=== PATIENT | male | born 1950 | race Caucasian/White ===

== ENCOUNTER 2018-02-25 14:46 | Inpatient (IN) | payer MEDICARE ==
[~2018-02-25] VITALS: Ht 182.9 cm
--- NOTE | ~2018-02-25 | HEMODYNAMI ---
PATIENT:KATELYN NUGENT MEDICAL RECORD: [id number] : 50 [facility]# [id number] ADMISSION DATE: 02/25/18 Generatedon:02/26/201816:49 Patient name: KATELYN NUGENT Patient #: [id number] SSN: DO B: 1950 Date of study: 02/26/2018 Page: Of Hemodynamic Procedure Report Patient Data Patient Demographics Procedure consent was obtained First Name: KATELYN Gender: Male Last Name: RAFFI : 1950 Middle Initial: D Age: 68 year(s) Patient #: [id number] Race: Unknown Additional ID: [id number] Contact details [address]: [address] [place] [address] State: [place] City: [place] Zip code: [address] Past Medical History Allergies Allergen Reaction Date Comments Reported Other allergy 02/26/2018 PCN, SULFA, TETANUS, EQUINE Admission Admission Data Admission Date: 02/25/2018 Admission Time: 14:46 Room #: D.2115 Lab Results Lab Result Date: 02/26/2018 Lab Result Time: 0:00 Biochemistry Name Units Result Min Max BUN mg/dl 17 --(---*)-- 7 18 Creatinine mg/dl 1.2 --(---*)-- 0.6 1.3 CBC Name Units Result Min Max Hemoglobin g/dl 14.5 --(*---)-- 13.5 17.5 Procedure Procedure Types Cath Procedure Diagnostic Procedure C [facility] w/Coronaries Sedation Charges Moderate Sedation up to 15 minutes PCI Procedure Coronary Stent Coronary Stent Initial Peripheral Cath Diagnostic Procedure Cath Peripheral Four Vessel Arteriogram Procedure Description Procedure Date Procedure Date: 02/26/2018 Procedure Start Time: 16:28 Procedure End Time: 16:49 Procedure Staff Name Function Robert Mix MD Performing Physician Fanny Melgoza RT Monitor Pilo Mercedes RT Scrub Aníbal Chapin RN Nurse Dominik Handley RT Assembler Final Procedure Data Cath Procedure Fluoroscopy Diagnostic fluoroscopy Total fluoroscopy Time: 4.6 time: 4.6 min min Diagnostic fluoroscopy Total fluoroscopy dose: 782 dose: 782 mGy mGy Contrast Material Contrast Material Type Amount (ml) Isovue 370 137 Entry Location Entry Primary Successful Side Size Upsize Upsize Entry Closure Succes sful Closure Location (Fr) 1 (Fr) 2 (Fr) Remarks Device Remarks Femoral Right 5 Fr 6 Fr Exoseal artery Short Estimated blood loss: 10 ml Diagnostic catheters Device Type Used For End Catheter Placement MULTIPACK Pigtail 5 Fr Procedure catheter MULTIPACK JL 4.0 5Fr Procedure catheter MULTIPACK 3DRC 5Fr Procedure catheter Procedure Complications No complications Procedure Medications Medication Administration Route Dosage Oxygen NC 2 l/min Lidocaine 2% added to field 20 Heparin Flush Bag added to field 2 bags (1000units/500ml NS) 0.9% NaCl I.V. ml/hr Versed I.V. 1 mg Fentanyl I.V. 50 mcg Heparin Bolus I.V. 4000 units Integrilin (Bolus I.V. 8.5 ml 2mg/ml) Versed I.V. 1 mg Fentanyl I.V. 50 mcg Plavix P.O. 600 mg Hemodynamics Rest HGB: 14.5 (g/dl) Heart Rate: 65 (bpm) Snapshots Pre Cath Intra NCS Post Cath Vital Signs Time Heart Resp SPO2 etCO2 NIBP (mmHg) Rhythm Pain Sedation Rate (ipm) (%) (mmHg) Status Level (bpm) 16:23:40 64 15 96 46.6 135/83(120) NSR 0 (11) 10(A) , No pain 16:28:19 72 16 94 40.6 103/69(89) NSR 0 (11) 10(A) , No pain 16:32:53 71 15 93 42.1 105/71(91) NSR 0 (11) 9(A) , No pain 16:37:30 71 21 95 20 119/74(88) NSR 0 (11) 9(A) , No pain 16:42:06 72 16 96 14.2 112/70(90) NSR 0 (11) 9(A) , No pain 16:46:45 72 15 94 40.6 111/69(97) NSR 0 (11) 10(A) , No pain Medications Time Medication Route Dose Verified Delivered Reason Notes Effectiveness by by 16:23:45 Oxygen NC 2 Robert Spangler used for l/min Dominguez Chapin RN procedure 16:23:52 Lidocaine 2% added 20ml Robertdarrell Jones for local to vial Dominguez Mix MD anesthetic field 16:24:03 Heparin Flush added 2 Robert Robert used for Bag to bags Dominguez Mix MD procedure (1000units/500ml field NS) 16:24:09 0.9% NaCl I.V. ml/hr Robertdarrell Spangler Per physician Dominguez Chapin RN 16:25:06 Versed I.V. 1 mg Robert Hopperie for sedation Dominguez Chapin RN 16:25:12 Fentanyl I.V. 50 Robert Buffie for sedation mcg Dominguez Chapin RN 16:36:23 Heparin Bolus I.V. 4000 Robert Buffie for verifi ed units Dominguez Chapin RN anticoagulation with dr mix 16:39:06 Integrilin I.V. 8.5 Robert Hopperie for Wasted (Bolus 2mg/ml) ml Dominguez Chapin RN antiplatelet 1.5 ml therapy of vial 16:42:17 Versed I.V. 1 mg Robert Hopperie for sedation Dominguez Chapin RN 16:42:21 Fentanyl I.V. 50 Robert Buffie for sedation mcg Dominguez Chapin RN 16:48:56 Plavix P.O. 600 Robert Hopperie for mg Dominguez Chapin RN antiplatelet therapy Procedure Log Time Note 15:52:42 Informed consent obtained and on chart 15:53:04 Diagnostic Cath status Elective 15:53:06 Dominik Handley RT(R) sent for patient. Start room use. 15:53:07 Time tracking: Regular hours (M-F 7:00 - 5:00) 15:53:11 Plan of Care:Hemodynamics will remain stable., Cardiac rhythm will remain stable., Comfort level will be maintained., Respiratory function will remain adequate., Patient/ family verbilizes understanding of procedure., Procedure tolerated without complication., Recovers from procedure without complications.. 15:53:20 H&P Date Dictated: 02/25/2018 Within 30 days and on chart.. 16:11:54 Patient received from Med/Surg to CCL 1 Alert and oriented. Tansferred to table in Supine position. 16:11:55 Warm blankets applied, and chaparro hugger turned on for patient comfort. 16:11:56 Correct patient and procedure confirmed by team. 16:11:57 ECG and BP/O2 sat monitors applied to patient. 16::58 Pre-procedure instructions explained to patient. 16::58 Pre-op teaching completed and patient verbalized understanding. 16:12:12 Family in patients room. 16:12:14 Patient NPO since Midnight. 16:22:47 Vital chart was started 16:22:49 Baseline sample Acquired. 16:22:54 Rhythm: sinus rhythm 16::58 Full Disclosure recording started 16:23:17 Patient allergic to Other allergyPCN, SULFA, TETANUS, EQUINE 16:23:23 Is the patient allergic to Iodine/contrast media? No. 16:23:24 Is patient on blood thinner?No 16:23:27 Patient diabetic? No. 16:23:31 Previous problem with sedation/anesthesia? No ? 16:23:32 Snore? Yes 16:23:33 Sleep apnea? No 16:23:34 Deviated septum? No 16:23:34 Opens mouth fully? Yes 16:23:35 Sticks out tongue? Yes 16:23:37 Airway obstruction? No ? 16:23:42 Dentures? Yes IN TIGHT 16:23:45 Oxygen 2 l/min NC was administered by Aníbal Chapin RN; used for procedure; 16:23:46 Pre procedure: right dorsailis pedis pulse 2+ Normal; easily identifiable; not easily obliterated 16:23:52 Lidocaine 2% 20ml vial added to field was administered by Robert Mix MD; for local anesthetic; 16:24:02 Patient pain scale 0/10 ?. 16:24:03 Heparin Flush Bag (1000units/500ml NS) 2 bags added to field was administered by Robert Mix MD; used for procedure; 16:24:06 IV patent on arrival in left hand with 0.9% NaCl at [facility]. 16:24:09 0.9% NaCl ml/hr I.V. was administered by Aníbal Chapin RN; Per physician; 16:24:29 Lab Result : BUN 17 mg/dl 16:24:29 Lab Result : Hemoglobin 14.5 g/dl 16:24:29 Lab Result : Creatinine 1.2 mg/dl 16:24:37 Right groin area was prepped with chlora-prep and draped in sterile fashion 16:24:38 Alarms reviewed by R. N. 16:24:39 Sharps counted by scrub and verified by R.N. 16::40 --------ALL STOP TIME OUT------ 16::40 Final Timeout: patient, procedure, and site verified with staff and physician. All members of the team are in agreement. 16:24:42 Right groin site verified by team. 16:24:45 Physical assessment completed. ASA score P 2 - A patient with mild systemic disease as per Robert Mix MD. 16:24:48 Sedation plan: IV Moderate Sedation Medication:Versed, Fentanyl 16:24:57 Pt has noted facial draw to rt side of face. speech is clear. pt states has had this and takes medication for this for many years, 16:25:06 Versed 1 mg I.V. was administered by Aníbal Chapin RN; for sedation; 16:25:12 Fentanyl 50 mcg I.V. was administered by Aníbal Chapin RN; for sedation; 16:25:17 Use device set Femoral Dx 16:25:18 ACIST Syringe (43130) opened to sterile field. 16:25:20 Bag Decanter (2002S) opened to sterile field. 16:25:22 ACIST Hand Control (27634) opened to sterile field. 16:25:22 ACIST Manifold (12949) opened to sterile field. 16:25:23 Tegaderm 4 x 4 (1626W) opened to sterile field. 16:25:24 Medline Cath Pack ([id number]) opened to sterile field. 16:25:25 DIAGNOSTIC WIRE .035 260cm J wire (022109) opened to sterile field. 16:25:26 DIAGNOSTIC Multipack 5Fr catheter set (GI9005) opened to sterile field. 16:25:28 SHEATH Prelude 5Fr 0.035 (OQL-0Y-62-035) opened to sterile field. 16:27:09 Zero performed for pressure channel P1 16:28:17 Procedure started. 16:28:26 Local anesthetic to right femoral artery with Lidocaine 2% by Robert Mix MD.INITIAL ACCESS ONLY 16:29:14 A 5 Fr sheath was inserted into the Right Femoral artery 16:29:33 A MULTIPACK Pigtail 5 Fr catheter was advanced over the wire and used for Procedure. 16:29:46 LV gram done using SAAVEDRA 16:29:48 Injector settings: Ml/sec: 10, Volume: 20, 16:30:00 EF : 55 % 16:30:01 Catheter removed. 16:30:06 A MULTIPACK JL 4.0 5Fr catheter was advanced over the wire and used for Procedure. 16:31:21 LCA angiography performed. 16:31:37 Catheter removed. 16:31:59 SHEATH 6FR Marks (SUK486) opened to sterile field. 16:32:04 INFLATOR Merit BasixCompak (JV4450) opened to sterile field. 16:32:10 CHOICE PT Extra Support 182cm wire ([id number]) opened to sterile field. 16:32:20 A MULTIPACK 3DRC 5Fr catheter was advanced over the wire and used for Procedure. 16:32:31 RCA angiography performed. 16:33:45 Right carotid angiography performed. 16:34:39 Left carotid angiography performed. 16:34:59 Catheter removed. 16:35:11 Sheath upsized to a 6 Fr Short. 16:35:19 GUIDE 6FR XB 3.5 catheter ([id number]) opened to sterile field. 16:36:12 6 Fr XB 3.5 guide catheter was inserted over the wire 16:36:23 Heparin Bolus 4000 units I.V. was administered by Aníbal Chapin RN; for anticoagulation; verified with dr mix 16:36:53 CHOICE ES 182 wire advanced. 16:39:01 Inflate balloon Inflation number: 1 A EUPHORA 2.0 x 30 Balloon ([id number]) was prepped and advanced across the Mid CX, then inflated to 17 MONET for 0:10 (min:sec). 16:39:06 Integrilin (Bolus 2mg/ml) 8.5 ml I.V. was administered by Aníbal Chapin RN; for antiplatelet therapy; Wasted 1.5 ml of vial 16:39:21 Balloon removed over the wire. 16:41:34 Place stent Inflation Number: 2 A WILLIAM RX 2.25 x 34 stent ([id number]) was prepped and advanced across the Mid CX. The stent was deployed at 15 MONET for 0:10 (min:sec). 16:42:03 Inflation number: 3 The stent balloon was then re-inflated across the Mid CX to 7 MONET for 0:10 (min:sec). 16:42:17 Versed 1 mg I.V. was administered by Aníbal Chapin RN; for sedation; 16:42:21 Fentanyl 50 mcg I.V. was administered by Aníbal Chapin RN; for sedation; 16:42:37 Stent catheter was removed intact over wire. 16:42:39 Wire removed. 16:42:39 Guide catheter removed. 16:42:45 EXOSEAL 6Fr (EX600) opened to sterile field. 16:43:27 Sheath removed intact; hemostasis achieved with Exoseal to the Right Femoral artery. 16:44:02 Procedure ended.(Physican Out) 16:45:46 Fluoroscopy time 04.60 minutes. 16:45:56 Flurop Dose total: 782 16:45:56 Fluoroscopy dose: 782 mGy 16:46:00 Contrast amount:Isovue 370 137ml. 16:46:05 Post-op/insertion site Right Femoral artery dressed using a 4 x 4 and Tegaderm. 16:46:17 Post right femoral artery:stable, soft, clean and dry 16:46:27 Post procedure: right dorsailis pedis pulse 2+ Normal; easily identifiable; not easily obliterated. 16:46:30 Post-procedure physical assessment completed. ASA score P 2 - A patient with mild systemic disease as per Robert Mix MD. 16:46:35 Post procedure rhythm: unchanged. 16:46:38 Estimated blood loss: 10 ml 16:46:39 Post procedure instruction explained to patient.Patient verbalizes understanding. 16:46:39 Patient needs reinforcement of post procedure teaching. 16:47:15 Procedure type changed to Cath procedure, Diagnostic procedure, LHC, LHC w/Coronaries, Sedation Charges, Moderate Sedation up to 15 minutes, PCI procedure, Coronary Stent, Coronary Stent Initial, Peripheral Cath Diagnostic Procedure, Cath Peripheral, Four Vessel Arteriogram 16:48:56 Plavix 600 mg P.O. was administered by Aníbal Chapin RN; for antiplatelet therapy; 16:49:12 Procedure and supply charges have been captured, reviewed, submitted and are correct. 16:49:14 Procedure Complication : No complications 16:49:16 Vital chart was stopped 16:49:16 See physician's report for complete and final results. 16:49:22 Report given to PCU. 16:49:25 Patient transfered to PCU with Bed. 16:49:26 Procedure ended. 16:49:26 Full Disclosure recording stopped 16:49:29 End room use (Document Last) Intervention Summary Intervention Notes Time ActionType Lesion and Equipment Used Action# Pressure Duration Attributes 16:39:01 Inflate Mid CX EUPHORA 2.0 x 1 17 00:10 balloon 30 Balloon ([id number]) 16:41:34 Place stent Mid CX WILLIAM RX 2.25 x 2 15 00:10 34 stent ([id number]) 16:42:03 Reinflate Mid CX WILLIAM RX 2.25 x 3 7 00:10 stent 34 stent balloon ([id number]) Device Usage Item Name Manufacture Quantity Catalog Number Hospital Part Current Minimal Lot# / Charge Number Stock Stock Serial# Code ACIST Syringe Acist 1 30068 361774 020052 958563 20 (57604) Medical Systems Beauty Noted Bag Decanter Microtek 1 2001S 797362 08688 796088 5 (2001S) Medical Inc. ACIST Hand Acist 1 17749 975403 614843 224947 5 Control (93454) Medical Systems Inc ACIST Manifold Acist 1 92203 038130 759771 553887 5 (15766) Medical Systems Inc Tegaderm 4 x 4 3M 1 1626W 480527 464022 887202 5 (1626W) Medline Cath Cardinal 1 [id number] 618148 64301 947898 5 Pack Health ([id number]) DIAGNOSTIC WIRE St Eduardo 1 246618 793881 879638 647706 30 .035 260cm J wire (115982) DIAGNOSTIC Cardinal 1 ZZ3111 510787 59463 157995 30 Multipack 5Fr Health catheter set (NL4451) SHEATH Prelude Merit 1 NIT-9G-02-035 226508 909139 277713 5 5Fr 0.035 Medical (PDJ-0K-51-035) MULTIPACK Cardinal 1 961933 5 Pigtail 5 Fr Health catheter MULTIPACK JL Cardinal 1 087876 5 4.0 5Fr Health catheter MULTIPACK 3DRC Cardinal 1 846281 5 5Fr catheter Health SHEATH 6FR Terumo 1 HGX070 644742 403396 479581 40 Marks (RYU606) INFLATOR Merit Merit 1 DC9594 041408 877141 155973 15 [employer] (UG4795) CHOICE PT Extra [place] 1 [id number] 570166 904653 991728 5 Support 182cm Scientific wire (2055659H7) GUIDE 6FR XB Cardinal 1 85915615 612111 221915 864890 2 3.5 catheter Health (56353121) EUPHORA 2.0 x Medtronic 1 [id number] 374852 027337 843923 5 [id number] 30 Balloon ([id number]) WILLIAM RX 2.25 x Medtronic 1 [id number] 262562 9992352 545573 5 [id number] 34 stent ([id number]) EXOSEAL 6Fr Cardinal 1 EX600 579541 895364 802364 10 (EX600) Health Signature Audit [place] Stage Time Signature Unsigned Intra-Procedure 02/26/2018 Fanny Melgoza 4:49:52 PM RT(R) Signatures Monitor : Fanny Melgoza Signature : RT Date : Time : [address] [place] [address]
--- NOTE | ~2018-02-25 | CN ---
PATIENT NAME:KATELYN NUGENT MEDICAL RECORD: [id number] : 50 LOCATION:D.Judy D.2115 ADMIT DATE: 02/25/18 ACCOUNT: [id number] CONSULTING PHYSICIAN: DOMINGO BARRETO MD REFERRING PHYSICIAN: DAISY REYES MD DATE OF CONSULTATION: 02/26/2018 ADMITTING DIAGNOSES: 1. Chest pain. 2. Syncope. 3. Hyperlipidemia. 4. Hypertension. 5. History of irregular heartbeat and palpitations. 6. Possible seizure. HISTORY OF PRESENT ILLNESS: This is a gentleman who began having syncopal episodes on Thursday, he has had multiple episodes. He was in Dr. Reyes's office today. He had an episode that was associated with some chest discomfort. There is a question of seizure activity, not known if this was before or after the syncopal episode. His was close to him, did not convey any seizure-like episode; however, the staff seems to have felt that there was a seizure-like activity. His troponin is normal. His EKG is with nonspecific ST-T abnormalities. OVERALL IMPRESSION: Syncope, possible seizure, but associated with chest pain in a patient with hypertension, hyperlipidemia. We will proceed with coronary angiography, four-vessel carotid and vertebral angiography. Further care depends upon the findings of these studies. TRANSINT:[id number] Voice Confirmation ID: [id number] DOCUMENT ID: [id number] DOMINGO BARRETO MD at 1730 CC: [id number] DICTATION DATE: 02/26/18 1246 COLLAR BASTER: 02/26/18 1334 ADM [address] [address] [place] [address]
--- NOTE | ~2018-02-25 | OP ---
PATIENT NAME: KATELYN NUGENT MEDICAL RECORD: [id number] :50 LOCATION:D.M2 D.2115 ADMISSION DATE:02/25/18 SURGEON: DOMINGO BARRETO MD DATE OF OPERATION: 02/26/2018 PROCEDURES: 1. PTCA stent left circumflex. 2. Left heart catheterization. 3. Selective coronary angiography. 4. Left ventriculogram. 5. Four-vessel carotid and vertebral angiography. INDICATION: Angina, coronary artery disease, and syncope. PROCEDURE IN DETAIL: After informed consent was obtained and after a detailed description of the risks, benefits as well as alternative therapies, the patient elected to proceed angiogram and angioplasty. The right femoral area is prepped and draped in normal sterile fashion. Right femoral artery was cannulated via modified Seldinger technique with placement of 6-[place] Islander sheath. All catheter exchanges through this sheath. FINDINGS: There was subselection of each subclavian as well as the left carotid. Right side common internal and external carotids have mild plaquing, none greater than 10%, with no flow-limiting stenosis. Vertebral artery has no significant disease of the left system. Common internal and external carotids have mild plaquing, none greater than 10%. Vertebral artery has no significant disease throughout. LEFT HEART CATHETERIZATION: Left ventriculogram was performed in standard 30-degree SAAVEDRA view, reveals good cardiac wall motion throughout all segments. Overall ejection fraction estimated at 60%. SELECTIVE CORONARY ANGIOGRAPHY: 1. Left main is with no significant angiographic disease. 2. Left anterior descending has a 70+ percent stenosis proximally. 3. The left circumflex has 90% stenosis throughout the mid vessel. 4. Right coronary has moderate irregularities, but no flow-limiting stenosis throughout. PTCA STENT OF THE LEFT CIRCUMFLEX: The stent used was a 2.25 x 34 mm Merrill. Result was 0% residual stenosis. OVERALL IMPRESSION: Successful percutaneous transluminal angioplasty stent of the left circumflex going from 95% initial stenosis to 0% residual. PLAN: PTCA stent of the LAD in the near future. TRANSINT:[id number] Voice Confirmation ID: [id number] DOCUMENT ID: [id number] OPERATIVE REPORT [id number] KATELYN NUGENT DOMINGO BARRETO MD at 0820 CC: [id number] DICTATION DATE: 02/26/181649 SHEEP BONER: 02/27/18 0009 DIS IN 02/27/18 [facility] [address] [place], [facility]
--- NOTE | ~2018-02-25 | EC ---
PATIENT:KATELYN NUGENT DATE OF SERVICE: 02/25/18 SEX: M MEDICAL RECORD: [id number] DATE OF : 50 LOCATION:D.M2 D.211 AGE OF PATIENT: 68 ADMISSION DATE: 02/25/18 REFERRING PHYSICIAN: INTERPRETING PHYSICIAN: DOMINGO MIX MD ECHOCARDIOGRAM REPORT ECHO CHARGES 4 ECHO COMPLETE Date: 02/26 CLINICAL DIAGNOSIS: SYNCOPE ECHOCARDIOGRAPHIC MEASUREMENTS (adult normal given) AC root (d.<3.7cm) 3.9 cm LV Septum d (<1.2 cm> 1.4 cm Valve Excursion 2.0 cm LV Septum (systole) 2.1 cm Left Atria (s.<4.0cm> 3.6 cm LVPW d(<1.2cm) 1.1 cm RV (d.<2.3cm) 2.5 cm LVPW (sytole) 1.8 cm LV diastole(<5.6CM) 4.8 cm MV E-F(>70mm/sec) cm LV systole 2.8 cm LVOT Diameter 1.9 cm MV exc.(>10mm) cm Est.ejection fraction (50-75%) % DOPPLER: LVIT cm/sec A 58.0 cm/sec E 76.0 cm/sec LA cm/sec RVSP 28.0 mmHg LVOT 92.0 cm/sec AOP1/2T m/s Asc. Ao 110 cm/sec RVOT 52.0 cm/sec RA cm/sec PA 66.0 cm/sec AV Gradient Peak 4.9 mmHg AV Mean 2.3 mmHg AV Area 2.3 cm MV Gradient Peak 3.9 mmHg MV Mean 1.2 mmHg MV Area cm COMMENTS: Inspector Finishing: Ricardo WALLOE Senior Web Developer: 1 Dr. Mix TAPE# PACS Pericardial Effusion N DATE OF SERVICE: 02/26/2018 PROCEDURE: Echocardiogram. FINDINGS: 1. Left ventricle chamber size is within normal limits. Left ventricular systolic function is normal. Overall ejection fraction estimated at 60%. 2. Left atrium, right atrium, and right ventricle chamber sizes are within normal limits. 3. Valvular structures have normal structure and motion. ECHOCARDIOGRAM REPORT [id number] KATELYN NUGENT 4. Doppler interrogation only reveals trace to mild tricuspid regurgitation, no other valvular insufficiency or stenosis. 5. No evidence of pericardial effusion or left ventricular thrombus. TRANSINT:[id number] Voice Confirmation ID: [id number] DOCUMENT ID: [id number] DOMINGO MIX MD at 1629 CC: [id number] DICTATION DATE: 02/27/1837 SEWER PIPE SORTER: 02/27/18 1148 DIS IN 02/27/18 [facility] [address] [id number]
[2018-02-25] MEDS ORDERED: PRAVACHOL40 MG PO (15:07)
[2018-02-25] MEDS ORDERED: CELEXA20 MG PO (15:07)
[2018-02-25] MEDS ORDERED: SYNTHROID88 MCG PO (15:07)
[2018-02-25] MEDS ORDERED: MYSOLINE250 MG PO ×2 (15:07→15:08)
[2018-02-25] MEDS ORDERED: METOPROLOL TART50 MG PO (15:10)
[2018-02-25] MEDS ORDERED: PHENOBARBITAL30 MG PO (15:10)
[2018-02-25] MEDS ORDERED: KLONOPIN0.5 MG PO (15:10)
[2018-02-25] MEDS ORDERED: NEXIUM20 MG PO ×2 (15:34→20:24)
[2018-02-25 16:29] LABS: BASOPHILS 0.8 % (0-2); EOSINOPHILS 4.9 % (0-7); HEMATOCRIT 42.1 % (42.0-54.0); HEMOGLOBIN 14.3 g/dL (13.5-17.5); IMMATURE GRANULOCYTES 0.2 % (0-5); LYMPHOCYTES 23.3 % (15-50); MCV 94.2 fL (80.0-100.0); MEAN PLATELET VOLUME 12.8 fL (7.4-10.4); MONOCYTES 13.1 % (2-11); NEUTROPHILS 57.7 % (40-80); PLATELET COUNT 219 10x3/uL (130-400); RBC 4.47 10x6/uL (4.20-6.10); RDW 14.1 % (11.5-14.5); WBC 6.3 10x3/uL (4.8-10.8)
[2018-02-25 16:49] VITALS: BP 148/82
[2018-02-25 16:54] LABS: ALBUMIN 3.7 g/dL (3.4-5.0); ANION GAP 12.4 mmol/L (8-16); BILIRUBIN - TOTAL 0.36 mg/dL (0.2-1.3); CALCIUM 9.3 mg/dL (8.5-10.1); CARBON DIOXIDE 28.1 mmol/L (21.0-32.0); CREATININE - SERUM 1.1 mg/dL (0.6-1.3); POTASSIUM - SERUM 4.5 mmol/L (3.5-5.1); PROTEIN - SERUM 6.8 g/dL (6.4-8.2); T4 THYROXIN - FREE 1.09 ng/dL (0.76-1.46); T4 THYROXINE 10.2 ug/dL (4.7-13.3); THYROID STIMULATING HORMONE 4.22 uIU/mL (0.36-3.74)
[2018-02-25 17:23] LABS: CKMB 0.4 U/L (0.0-3.6); CREATINE KINASE 42 UL (21-232); TROPONIN-I < 0.017 ng/mL (0.000-0.060)
[2018-02-25 18:17] LABS: CHOL - HDL RATIO 4.6 ratio (2.3-4.9); CHOLESTEROL, TOTAL 214 mg/dL (0-200); HDL CHOLESTEROL 47 mg/dL (32-96); LDL CHOLESTEROL 149 mg/dL (0-100); LDL-HDL RATIO 3.2 ratio (1.5-3.5); TRIGLYCERIDE 94 mg/dL (30-200)
[2018-02-25 20:44] VITALS: BP 116/65
[2018-02-25 22:41] LABS: CKMB 0.4 U/L (0.0-3.6); CREATINE KINASE 42 UL (21-232); TROPONIN-I < 0.017 ng/mL (0.000-0.060)
[2018-02-26 01:17] VITALS: BP 124/64
[2018-02-26 05:00] VITALS: BP 138/74
[2018-02-26 05:05] VITALS: Ht 182.9 cm
[2018-02-26 05:25] LABS: BASOPHILS 0.5 % (0-2); EOSINOPHILS 5.4 % (0-7); HEMOGLOBIN 14.5 g/dL (13.5-17.5); IMMATURE GRANULOCYTES 0.2 % (0-5); LYMPHOCYTES 21.1 % (15-50); MCH 32.4 pg (26.0-34.0); MCHC 33.7 g/dL (31.0-37.0); MONOCYTES 9.6 % (2-11); NEUTROPHILS 63.2 % (40-80); PLATELET COUNT 207 10x3/uL (130-400); RBC 4.48 10x6/uL (4.20-6.10); RDW 13.3 % (11.5-14.5); WBC 6.3 10x3/uL (4.8-10.8)
[2018-02-26 06:03] LABS: ALBUMIN 3.4 g/dL (3.4-5.0); ALKALINE PHOSPHATASE 76 U/L (46-116); ALT (SGPT) 21 U/L (10-68); BILIRUBIN - TOTAL 0.48 mg/dL (0.2-1.3); CALCIUM 9.1 mg/dL (8.5-10.1); CARBON DIOXIDE 27.8 mmol/L (21.0-32.0); CHLORIDE - SERUM 103 mmol/L (98-107); CREATINE KINASE 44 UL (21-232); CREATININE - SERUM 1.2 mg/dL (0.6-1.3); POTASSIUM - SERUM 4.9 mmol/L (3.5-5.1); PROTEIN - SERUM 6.8 g/dL (6.4-8.2); SODIUM 139 mmol/L (136-145); UREA NITROGEN 17 mg/dL (7-18); eGFR NON AFRICAN AMERICAN 64 mL/min (90-120)
[2018-02-26 06:04] LABS: CALC OSMOLALITY 280 mosm/kg (275-300); GLUCOSE 116 mg/dL (74-106); TROPONIN-I < 0.017 ng/mL (0.000-0.060)
[2018-02-26 06:27] LABS: CKMB 0.5 U/L (0.0-3.6)
[2018-02-26 09:07] VITALS: BP 114/68
[2018-02-26 11:26] VITALS: BP 108/66
[2018-02-26 21:09] VITALS: BP 120/69
[2018-02-27 01:02] VITALS: BP 125/85
[2018-02-27 05:08] LABS: BASOPHILS 0.3 % (0-2); EOSINOPHILS 3.9 % (0-7); HEMATOCRIT 41.6 % (42.0-54.0); HEMOGLOBIN 13.8 g/dL (13.5-17.5); IMMATURE GRANULOCYTES 0.2 % (0-5); LYMPHOCYTES 17.2 % (15-50); MCHC 33.2 g/dL (31.0-37.0); MCV 96.5 fL (80.0-100.0); MEAN PLATELET VOLUME 11.1 fL (7.4-10.4); MONOCYTES 10.2 % (2-11); NEUTROPHILS 68.2 % (40-80); PLATELET COUNT 212 10x3/uL (130-400); RBC 4.31 10x6/uL (4.20-6.10); RDW 13.3 % (11.5-14.5); WBC 6.5 10x3/uL (4.8-10.8)
[2018-02-27 05:31] VITALS: BP 117/76
[2018-02-27 05:43] LABS: ALBUMIN 3.1 g/dL (3.4-5.0); ANION GAP 9.8 mmol/L (8-16); BILIRUBIN - TOTAL 0.4 mg/dL (0.2-1.3); CALCIUM 8.3 mg/dL (8.5-10.1); CARBON DIOXIDE 27.7 mmol/L (21.0-32.0); CREATININE - SERUM 1.3 mg/dL (0.6-1.3); POTASSIUM - SERUM 4.5 mmol/L (3.5-5.1); PROTEIN - SERUM 6.3 g/dL (6.4-8.2)
[2018-02-27 08:29] VITALS: BP 121/74
[2018-02-27 11:54] VITALS: BP 138/73
[2018-02-27] MEDS ORDERED: PLAVIX75 MG PO (15:14)
[2018-02-27] MEDS ORDERED: ASPIRIN81 MG PO (15:14)
[2018-02-27 15:44] VITALS: BP 110/56
== END 2018-02-27 18:25 | disposition home or self-care (01) | DRG 247 ==
LOC: D.MS 14:46 → D.M2 02-26 16:18
PROVIDERS: Family Medicine; Internal Medicine Interventional Cardiology
PROC: B3111ZZ Fluoroscopy of Right Brachiocephalic-Subclavian Artery using Low Osmolar Contrast (ICD-10-PCS; 2018-02-26)
PROC: B31F1ZZ Fluoroscopy of Left Vertebral Artery using Low Osmolar Contrast (ICD-10-PCS; 2018-02-26)
PROC: B3121ZZ Fluoroscopy of Left Subclavian Artery using Low Osmolar Contrast (ICD-10-PCS; 2018-02-26)
PROC: B3191ZZ Fluoroscopy of Right External Carotid Artery using Low Osmolar Contrast (ICD-10-PCS; 2018-02-26)
PROC: B3131ZZ Fluoroscopy of Right Common Carotid Artery using Low Osmolar Contrast (ICD-10-PCS; 2018-02-26)
PROC: 027034Z Dilation of Coronary Artery, One Artery with Drug-eluting Intraluminal Device, Percutaneous Approach (ICD-10-PCS; principal; 2018-02-26 14:15)
PROC: 4A023N7 Measurement of Cardiac Sampling and Pressure, Left Heart, Percutaneous Approach (ICD-10-PCS; 2018-02-26 14:15)
PROC: B2151ZZ Fluoroscopy of Left Heart using Low Osmolar Contrast (ICD-10-PCS; 2018-02-26 14:15)
DX: R55 Syncope and collapse (principal); I10 Essential (primary) hypertension; F41.9 Anxiety disorder, unspecified; E03.9 Hypothyroidism, unspecified; E78.5 Hyperlipidemia, unspecified; J30.9 Allergic rhinitis, unspecified; W19.XXXA Unspecified fall, initial encounter

== ENCOUNTER 2018-03-02 08:12 | Outpatient (CLI) | payer MEDICARE ==
[~2018-03-02] VITALS: Ht 182.9 cm; Wt 90.9 kg
--- NOTE | ~2018-03-02 | HP ---
PATIENT: KATELYN BROWN MEDICAL RECORD: [id number] ACCOUNT: [id number] LOCATION:[facility] : 50 ADMISSION DATE: 03/02/18 HISTORY AND PHYSICAL EXAMINATION DATE OF SERVICE: 03/02/2018 ADMITTING DIAGNOSES: 1. Angina. 2. Coronary artery disease. 3. Recent percutaneous transluminal coronary angioplasty stent of the left circumflex with concomitant disease, LAD. 4. Hypertension. 5. Hyperlipidemia. HISTORY OF PRESENT ILLNESS: Mrs. Brown presents with anginal symptomatology, found to have significant disease of the circumflex and LAD, underwent successful PTCA stent of the circumflex, now brought back for PTCA stent of the LAD. PHYSICAL EXAMINATION: GENERAL APPEARANCE: Well-nourished, well-developed, appears stated age. Level of distress, comfortable. PSYCHIATRIC: Mental status, alert, normal affect. Orientation, oriented to time, place and person. EYES: Lids and conjunctiva, noninjected. No discharge, no pallor. ENT: Lips, teeth, gums, normal dentition. Oropharynx, no cyanosis, no pallor. NECK: Carotid arteries, bilateral normal upstroke, no bruits, no thrills. JUGULAR VEINS: No jugular venous pressure or distention. CERVICAL LYMPH NODES: Nontender, nonenlarged. THYROID: Not enlarged. Nontender. No nodules. LUNGS: Respiratory effort, unlabored. CHEST: Normal curvature. No thoracic deformity. No chest wall tenderness. Percussion, resonant. Auscultation, clear. No wheezes, no rales, no rhonchi. CARDIOVASCULAR: Precordial exam, nondisplaced. No heaves or pericardial thrills. Rate and rhythm, regular. Heart sounds, normal S1, normal S2. No S3, no gallop, no rub. Systolic murmur, not heard. Diastolic murmur, not heard. EXTREMITIES: No cyanosis, no edema. Peripheral pulses, full and equal in all extremities, except as noted. No bruits appreciated. ABDOMEN: Soft, nondistended. Normal aorta. No bruit. Nontender. No masses. Liver, nontender, no hepatomegaly. Spleen, nontender, no splenomegaly. MUSCULOSKELETAL: No joint tenderness. No joint swelling. No erythema. NEUROLOGICAL: Normal gait, normal strength, normal tone. SKIN: Warm and dry. OVERALL IMPRESSION: Anginal symptomatology with significant disease of the left anterior descending. We will proceed with percutaneous transluminal coronary angioplasty stent of the left anterior descending. TRANSINT:[id number] Voice Confirmation ID: [id number] DOCUMENT ID: [id number] HISTORY AND PHYSICAL [id number] KATELYN BROWN JEFFREY MD at 1630 CC: [id number] DICTATION DATE: 03/02/18813 [employer] HE[employer] AND SAFETY PROFESSOR: 03/02/18 0841 [address] [place] [address] [address] [place] [id number]
--- NOTE | ~2018-03-02 | HEMODYNAMI ---
PATIENT:KATELYN NUGENT MEDICAL RECORD: [id number] : 50 LOCATION:[facility] ADMISSION DATE: 03/02/18 Generatedon:03/02/201812:28 Patient name: KATELYN NUGENT Patient #: [id number] SSN: DO B: 1950 Date of study: 03/02/2018 Page: Of Hemodynamic Procedure Report Patient Data Patient Demographics Procedure consent was obtained First Name: KATELYN Gender: Male Last Name: RAFFI : 1950 Middle Initial: D Age: 68 year(s) Patient #: [id number] Race: Additional ID: [id number] Contact details Address: [address] [place] [address] State: [place] City: [place] Zip code: [address] Past Medical History Allergies Allergen Reaction Date Comments Reported Other allergy 02/26/2018 PCN, SULFA, TETANUS, EQUINE Admission Admission Data Admission Date: 03/02/2018 Admission Time: 8:12 Lab Results Lab Result Date: 03/02/2018 Lab Result Time: 0:00 Biochemistry Name Units Result Min Max BUN mg/dl 20 --(----)*- 7 18 Creatinine mg/dl 1.3 --(---*)-- 0.6 1.3 Procedure Procedure Types Cath Procedure PCI Procedure Coronary Stent Coronary Stent Initial Procedure Description Procedure Date Procedure Date: 03/02/2018 Procedure Start Time: 12:12 Procedure End Time: 12:26 Procedure Staff Name Function Robert Mix MD Performing Physician Joey Parada RT Monitor Aníbal Chapin RN Nurse Mary Harp RT Scrub Procedure Data Cath Procedure Fluoroscopy Diagnostic fluoroscopy Total fluoroscopy Time: 1.3 time: 1.3 min min Diagnostic fluoroscopy Total fluoroscopy dose: dose: 99.87 mGy 99.87 mGy Contrast Material Contrast Material Type Amount (ml) Isovue 300 41 Entry Location Entry Primary Successful Side Size Upsize Upsize Entry Closure Succes sful Closure Location (Fr) 1 (Fr) 2 (Fr) Remarks Device Remarks Femoral Left 6 Fr Exoseal artery Short Estimated blood loss: 20 ml Procedure Medications Medication Administration Route Dosage Versed I.V. 1 mg Fentanyl I.V. 50 mcg Heparin Bolus I.V. 4000 units Oxygen NC 2 l/min Lidocaine 2% added to field 20 Heparin Flush Bag added to field 2 bags (1000units/500ml NS) 0.9% NaCl I.V. 100 ml/hr Hemodynamics Rest HGB: 14.5 (g/dl) Heart Rate: 65 (bpm) Snapshots Pre Cath Intra NCS Post Cath Vital Signs Time Heart Resp SPO2 etCO2 NIBP (mmHg) Rhythm Pain Sedation Rate (ipm) (%) (mmHg) Status Level (bpm) 11:58:20 69 15 95 0 125/81(104) NSR 0 (11) 10(A) , No pain 12:03:19 73 15 98 0 127/78(97) NSR 0 (11) 10(A) , No pain 12:09:17 71 15 95 0 118/79(96) NSR 0 (11) 9(A) , No pain 12:14:16 72 18 90 0 Measuring NSR 0 (11) 9(A) , No pain 12:15:40 79 16 87 0 116/78(0) NSR 0 (11) 9(A) , No pain 12:20:39 75 16 95 0 Measuring NSR 0 (11) 10(A) , No pain 12:21:06 72 19 98 0 112/73(91) NSR 0 (11) 10(A) , No pain Medications Time Medication Route Dose Verified Delivered Reason Notes Effectiveness by by 12:00:41 Oxygen NC 2 Robert Buffie used for l/min Dominguez Chapin RN procedure 12:00:49 Lidocaine 2% added 20ml Robert Robert for local to vial Dominguez Mix MD anesthetic field 12:00:55 Heparin Flush added 2 Robert Robert used for Bag to bags Dominguez Mix MD procedure (1000units/500ml field NS) 12:01:06 0.9% NaCl I.V. 100 Robert Buffie Per physician ml/hr Dominguez Chapin RN 12:11:23 Versed I.V. 1 mg Robert Hopperie used for Dominguez Chapin RN procedure 12:11:28 Fentanyl I.V. 50 Robert Buffie for sedation mcg Dominguez Chapin RN 12:13:29 Heparin Bolus I.V. 4000 Robert Spangler for verifi ed units Dominguez Chapin RN anticoagulation with dr mix Procedure Log Time Note 11:45:44 Informed consent obtained and on chart 11:46:09 Diagnostic Cath Status : Elective 11:46:42 Mary Harp RT(R) sent for patient. Start room use. 11:46:44 Time tracking: Regular hours (M-F 7:00 - 5:00) 11:46:49 Plan of Care:Hemodynamics will remain stable., Cardiac rhythm will remain stable., Comfort level will be maintained., Respiratory function will remain adequate., Patient/ family verbilizes understanding of procedure., Procedure tolerated without complication., Recovers from procedure without complications.. 11:47:13 Medline Cath Pack ([id number]) opened to sterile field. 11:57:13 Patient received from Pre/Post Procedure Room to CCL 3 Alert and oriented. Tansferred to table in Supine position. 11:57:14 Warm blankets applied, and chaparro hugger turned on for patient comfort. 11:57:14 Correct patient and procedure confirmed by team. 11:57:15 ECG and BP/O2 sat monitors applied to patient. 11:57:16 Vital chart was started 11:57:17 Baseline sample Acquired. 11:57:20 Rhythm: sinus rhythm 11:57:21 Full Disclosure recording started 11:57:26 H&P Date Dictated: 03/02/2018 Within 30 days and on chart., H&P Addendum completed by physician on day of procedure. (MUST COMPLETE FOR ALL OUTPATIENTS). 11:57:27 Pre-procedure instructions explained to patient. 11:57:28 Pre-op teaching completed and patient verbalized understanding. 11:57:30 Family in patients room. 11:57:31 Patient NPO since Midnight. 11:57:33 Is the patient allergic to Iodine/contrast media? No. 11:57:34 Was the patient premedicated? No 11:57:35 Is patient on blood thinner?Yes 11:57:37 ACC The patient was administered the following blood thiners within the last 24 hours: ACCPlavix 11:57:40 Patient diabetic? No. 11:57:42 Previous problem with sedation/anesthesia? No ? 11:57:43 Snore? Yes 11:57:44 Sleep apnea? No 11:57:46 Deviated septum? No 11:57:47 Opens mouth fully? Yes 11:57:47 Sticks out tongue? Yes 11:57:50 Airway obstruction? No ? 11:57:54 Dentures? Yes in tight 11:58:11 Pre procedure: left dorsailis pedis pulse 2+ Normal; easily identifiable; not easily obliterated 11:58:17 Patient pain scale 0/10 ?. 11:58:24 IV patent on arrival in left wrist with 0.9% NaCl at [facility]. 11:59:22 SHEATH Prelude 6Fr 0.035 ([id number]) opened to sterile field. 12:00:41 Oxygen 2 l/min NC was administered by Aníbal Chapin RN; used for procedure; 12:00:49 Lidocaine 2% 20ml vial added to field was administered by Robert Mix MD; for local anesthetic; 12:00:55 Heparin Flush Bag (1000units/500ml NS) 2 bags added to field was administered by Robert Mix MD; used for procedure; 12:01:06 0.9% NaCl 100 ml/hr I.V. was administered by Aníbal Chapin RN; Per physician; 12:06:42 Lab Result : Creatinine 1.3 mg/dl 12:06:42 Lab Result : BUN 20 mg/dl 12:06:46 Lab results completed and on chart. 12:06:55 Left groin area was prepped with chlora-prep and draped in sterile fashion 12:06:58 Alarms reviewed by R. N. 12:07:02 Sharps counted by scrub and verified by R.N. 12:10:22 Physician arrived 12::22 --------ALL STOP TIME OUT------ 12::22 Final Timeout: patient, procedure, and site verified with staff and physician. All members of the team are in agreement. 12:10:25 Left groin site verified by team. 12:10:30 Physical assessment completed. ASA score P 2 - A patient with mild systemic disease as per Robert Mix MD. 12:10:34 Sedation plan: IV Moderate Sedation Medication:Versed, Fentanyl 12:10:50 Use device set DOMINGUEZ PCI 12:10:55 INFLATOR Merit BasixCompak (DL4127) opened to sterile field. 12:11:04 GUIDE 6FR XBLAD 3.5 catheter ([id number]) opened to sterile field. 12:11:06 CHOICE PT Extra Support 182cm wire ([id number]) opened to sterile field. 12:11:23 Versed 1 mg I.V. was administered by Aníbal Chapin RN; used for procedure; 12:11:28 Fentanyl 50 mcg I.V. was administered by Aníbal Chapin RN; for sedation; 12:11:54 Use device set Femoral Dx 12:12:15 ACIST Syringe (22803) opened to sterile field. 12:12:16 Bag Decanter (2002S) opened to sterile field. 12:12:18 DIAGNOSTIC WIRE .035 260cm J wire (434596) opened to sterile field. 12:12:36 ACIST Hand Control (31071) opened to sterile field. 12:12:37 ACIST Manifold (74743) opened to sterile field. 12:12:39 Tegaderm 4 x 4 (1626W) opened to sterile field. 12:12:48 Procedure started. 12:12:54 Local anesthetic to left femerol artery with Lidocaine 2% by Robert Mix MD.INITIAL ACCESS ONLY 12:12:57 Zero performed for pressure channel P1 12:13:14 A 6 Fr Short sheath was inserted into the Left Femoral artery 12:13:24 6 Fr XBLAD 3.5 guide catheter was inserted over the wire 12:13:29 Heparin Bolus 4000 units I.V. was administered by Aníbal Chapin RN; for anticoagulation; verified with dr mix 12:14:59 CHOICE wire advanced. 12:15:05 Wire advanced across lesion. 12:16:39 Place stent Inflation Number: 1 A WILLIAM RX 3.0 x 12 stent ([id number]) was prepped and advanced across the Prox LAD. The stent was deployed at 13 MONET for 0:10 (min:sec). 12:17:07 EXOSEAL 6Fr (EX600) opened to sterile field. 12:17:20 Stent catheter was removed intact over wire. 12:17:21 Wire removed. 12:17:21 Guide catheter removed. 12:18:48 Sheath removed intact; hemostasis achieved with Exoseal to the Left Femoral artery. 12:18:53 Procedure ended.(Physican Out) 12:19:06 Fluoroscopy time 01.30 minutes. 12:19:13 Flurop Dose total: 99.87 12:19:13 Fluoroscopy dose: 99.87 mGy 12:19:27 Contrast amount:Isovue 300 41ml. 12:19:38 Sharps counted by scrub and verified by R.N. 12:24:39 Insertion/operative site no bleeding no hematoma. 12:24:44 Post-op/insertion site Left Femoral artery dressed using a 4 x 4 and Tegaderm. 12:24:50 Post left femerol artery:stable 12:24:53 Post Procedure Pulses reassessed and unchanged 12:25:00 Post-procedure physical assessment completed. ASA score P 2 - A patient with mild systemic disease as per Robert Mix MD. 12:25:04 Post procedure rhythm: sinus rhythm 12:25:09 Estimated blood loss: 20 ml 12:25:12 Post procedure instruction explained to patient.Patient verbalizes understanding. 12:25:14 Patient needs reinforcement of post procedure teaching. 12:25:16 Procedure and supply charges have been captured, reviewed, submitted and are correct. 12:26:13 Vital chart was stopped 12:26:13 See physician's report for complete and final results. 12:26:17 Report given to Pre/Post Procedure Room. 12:26:23 Patient transfered to Pre/Post Procedure Room with Stretcher. 12:26:45 Procedure ended. 12:26:45 Full Disclosure recording stopped 12:26:49 End room use (Document Last) Intervention Summary Intervention Notes Time ActionType Lesion and Equipment Used Action# Pressure Duration Attributes 12:16:[address] stent Prox LAD WILLIAM RX 3.0 x 1 13 00:10 12 stent ([id number]) Device Usage Item Name Manufacture Quantity Catalog Number Hospital Part Current Minimal Lot# / Charge Number Stock Stock Serial# Code INFLATOR Merit Merit 1 [id number] 087455 265126 243642 15 Cryptic Software ([id number]) GUIDE 6FR XBLAD Cardinal 1 [id number] 941625 790030 799734 10 3.5 catheter [employer] ([id number]) CHOICE PT Extra [place] 1 [id number] 253525 731056 505479 5 Support 182cm Scientific wire ([id number]) ACIST Syringe Acist 1 10327 651779 929539 538534 20 (07030) Medical Systems Inc Bag Decanter Microtek 1 2001S 554508 40789 575485 5 (2001S) Medical Inc. DIAGNOSTIC WIRE St Eduardo 1 747141 458818 504462 730153 30 .035 260cm J wire (518048) ACIST Hand Acist 1 34030 576073 519150 911715 5 Control (74989) Medical Systems Inc ACIST Manifold Acist 1 01743 450475 736961 963023 5 (40099) Medical Systems Inc Tegaderm 4 x 4 3M 1 1626W 323078 975070 375700 5 (1626W) WILLIAM RX 3.0 x Medtronic 1 [id number] 754955 6916314 976520 5 [id number] 12 stent ([id number]) EXOSEAL 6Fr Cardinal 1 EX600 028356 844168 096308 10 (EX600) Health Medline Cath Cardinal 1 [id number] 082436 32210 517758 5 Pack Health ([id number]) SHEATH Prelude Merit 1 [id number] 869564 5017239 859386 5 6Fr 0.035 Medical (QBA-4X-01-035) Signature Audit [place] Stage Time Signature Unsigned Intra-Procedure 03/02/2018 Joey Parada 12:28:02 PM RT(R) (CV) Signatures Monitor : Joey Parada RT Signature : Date : Time : [address] [place] [address]
--- NOTE | ~2018-03-02 | OP ---
PATIENT NAME: KATELYN NUGENT MEDICAL RECORD: [id number] :50 LOCATION:D.CAT ADMISSION DATE: SURGEON: DOMINGO BARRETO MD DATE OF OPERATION: 03/02/2018 PROCEDURES: 1. PTCA stent LAD. 2. Selective coronary angiography. INDICATION: Angina and coronary artery disease. DESCRIPTION OF PROCEDURE: After informed consent was obtained and after a detailed explanation of the risks, benefits as well as alternative therapies, the patient elected to proceed with angiogram and angioplasty. The left femoral area was prepped and draped in normal sterile fashion. Left femoral artery was cannulated via modified Seldinger technique with placement of a 6-Slovak sheath. All catheters exchanged through this sheath. FINDINGS: The left anterior descending has 75% stenosis proximally. This was addressed with a 3.0 x 12 mm Merrill stent. Result was 0% residual stenosis. OVERALL IMPRESSION: Successful percutaneous transluminal coronary angioplasty stent of the left anterior descending going from 75% initial stenosis to 0% residual. TRANSINT:[id number] Voice Confirmation ID: [id number] DOCUMENT ID: [id number] DOMINGO BARRETO MD at 1630 CC: [id number] DICTATION DATE: 03/02/18 1220 ROCK DUST SPRAYER: 03/02/18 1237 REG [facility] [address] [place] [address]
[~2018-03-02 08:12] MED LIST: ASPIRIN81 MG PO; CELEXA20 MG PO; KLONOPIN0.5 MG PO; METOPROLOL TART50 MG PO; MYSOLINE250 MG PO; NEXIUM20 MG PO; PHENOBARBITAL30 MG PO; PLAVIX75 MG PO; PRAVACHOL40 MG PO; SYNTHROID88 MCG PO
[2018-03-02 08:47] VITALS: BP 138/80; Ht 182.9 cm; Wt 90.9 kg
[2018-03-02 08:54] LABS: BASOPHILS 0.4 % (0-2); EOSINOPHILS 5.1 % (0-7); HEMATOCRIT 43.9 % (42.0-54.0); HEMOGLOBIN 14.9 g/dL (13.5-17.5); IMMATURE GRANULOCYTES 0.1 % (0-5); LYMPHOCYTES 15.7 % (15-50); MCH 32.7 pg (26.0-34.0); MCHC 33.9 g/dL (31.0-37.0); MCV 96.3 fL (80.0-100.0); MEAN PLATELET VOLUME 10.9 fL (7.4-10.4); MONOCYTES 8.4 % (2-11); NEUTROPHILS 70.3 % (40-80); PLATELET COUNT 228 10x3/uL (130-400); RBC 4.56 10x6/uL (4.20-6.10); RDW 13.4 % (11.5-14.5); WBC 7.1 10x3/uL (4.8-10.8)
[2018-03-02 09:05] LABS: ANION GAP 11.7 mmol/L (8-16); CALCIUM 9.2 mg/dL (8.5-10.1); CARBON DIOXIDE 27.7 mmol/L (21.0-32.0); CREATININE - SERUM 1.3 mg/dL (0.6-1.3); POTASSIUM - SERUM 4.4 mmol/L (3.5-5.1)
== END 2018-03-02 16:15 | disposition home or self-care (01) ==
LOC: D.CATH 08:12
PROVIDERS: Internal Medicine Interventional Cardiology
DX: I25.119 Atherosclerotic heart disease of native coronary artery with unspecified angina pectoris (principal); Z95.5 Presence of coronary angioplasty implant and graft; Z01.812 Encounter for preprocedural laboratory examination

== ENCOUNTER → 2018-04-16 07:55 | Outpatient (CLI) | payer MEDICARE ==
[2018-03-02 08:47] VITALS: BMI 27.2
== END | disposition home or self-care (01) ==
LOC: D.MRI 04-01 07:08
DX: R16.0 Hepatomegaly, not elsewhere classified (principal)

== ENCOUNTER → 2018-05-31 08:36 | Outpatient (CLI) | payer MEDICARE ==
[2018-03-02 08:47] VITALS: BMI 27.2
== END | disposition home or self-care (01) ==
LOC: D.CT 08:36
DX: R93.8 Abnormal findings on diagnostic imaging of other specified body structures (principal)

== ENCOUNTER 2019-10-04 13:06 | Emergency (ER) | payer OTHER ==
[~2019-10-04] VITALS: Ht 182.9 cm; Wt 90.9 kg
[2019-10-04 13:14] VITALS: Ht 182.9 cm; Wt 90.9 kg
[2019-10-04] MEDS ORDERED: CETIRIZINE HCL5 MG PO (13:18)
[2019-10-04 13:48] LABS: BASOPHILS 0.5 % (0-2); EOSINOPHILS 9.7 % (0-7); HEMATOCRIT 43.2 % (42.0-54.0); HEMOGLOBIN 14.1 g/dL (13.5-17.5); IMMATURE GRANULOCYTES 0.3 % (0-5); LYMPHOCYTES 17.4 % (15-50); MCHC 32.6 g/dL (31.0-37.0); MCV 98.2 fL (80.0-100.0); MONOCYTES 8.8 % (2-11); NEUTROPHILS 63.3 % (40-80); PLATELET COUNT 229 10x3/uL (130-400); RDW 14.1 % (11.5-14.5); WBC 5.8 10x3/uL (4.8-10.8)
[2019-10-04 14:01] LABS: CALC OSMOLALITY 278 mosm/kg (275-300); CALCIUM 8.8 mg/dL (8.5-10.1); CARBON DIOXIDE 30.9 mmol/L (21.0-32.0); CHLORIDE - SERUM 103 mmol/L (98-107); CREATININE - SERUM 1.2 mg/dL (0.6-1.3); GLUCOSE 115 mg/dL (74-106); POTASSIUM - SERUM 4.6 mmol/L (3.5-5.1); SODIUM 138 mmol/L (136-145); UREA NITROGEN 17 mg/dL (7-18); eGFR NON AFRICAN AMERICAN 64 mL/min (90-120)
[2019-10-04 14:17] LABS: ALBUMIN 3.4 g/dL (3.4-5.0); ALKALINE PHOSPHATASE 88 U/L (46-116); ALT (SGPT) 18 U/L (10-68); CKMB 0.4 U/L (0.0-3.6); CREATINE KINASE 40 UL (21-232); PHENOBARBITAL 45.5 ug/mL (15.0-40.0); PROTEIN - SERUM 6.6 g/dL (6.4-8.2); THYROID STIMULATING HORMONE 2.83 uIU/mL (0.36-3.74); TROPONIN-I < 0.017 ng/mL (0.000-0.060)
[2019-10-04 14:23] LABS: APPEARANCE CLEAR (CLEAR); BILIRUBIN NEGATIVE (NEGATIVE); COLOR STRAW (YELLOW); GLUCOSE NEGATIVE (NEGATIVE); KETONE NEGATIVE (NEGATIVE); NITRITE NEGATIVE (NEGATIVE); PROTEIN TRACE mg/dL (NEGATIVE); SPECIFIC GRAVITY 1.015 (1.005-1.020); UROBILINOGEN NORMAL (NORMAL)
[2019-10-04 14:26] LABS: BACTERIA FEW /hpf (NEGATIVE); EPITHELIAL CELLS NSEEN /hpf (0-5); WHITE CELLS - URINE 0-5 /hpf (NEGATIVE)
[2019-10-04 14:27] LABS: UDS - AMPHET NEGATIVE QUAL (NEGATIVE); UDS - BARB POSITIVE QUAL (NEGATIVE); UDS - BENZO NEGATIVE QUAL (NEGATIVE); UDS - COCAINE NEGATIVE QUAL (NEGATIVE); UDS - OPIATE NEGATIVE QUAL (NEGATIVE); UDS - PCP NEGATIVE QUAL (NEGATIVE); UDS - THC NEGATIVE QUAL (NEGATIVE)
[2019-10-04 15:39] LABS: INR 1.02 (0.85-1.17); PROTIME 12.9 SECONDS (11.6-15.0)
[2019-10-04 16:20] VITALS: BP 111/91
== END 2019-10-04 16:20 | disposition home or self-care (01) ==
LOC: D.ER 13:06
PROVIDERS: Family Medicine
DX: R47.81 Slurred speech (principal); W19.XXXA Unspecified fall, initial encounter; Y93.9 Activity, unspecified; Y92.9 Unspecified place or not applicable; R55 Syncope and collapse; R41.82 Altered mental status, unspecified; E07.9 Disorder of thyroid, unspecified; I10 Essential (primary) hypertension

== ENCOUNTER 2019-10-20 13:34 | Emergency (ER) | payer OTHER ==
[~2019-10-20] VITALS: Ht 182.9 cm; Wt 93.6 kg
[~2019-10-20 13:34] MED LIST changes: +CETIRIZINE HCL5 MG PO
[2019-10-20 14:01] VITALS: Ht 182.9 cm; Wt 93.6 kg
[2019-10-20] MEDS ORDERED: TYLENOL W/CODEI1 TAB PO (17:26)
[2019-10-20] MEDS ORDERED: VOLTAREN75 MG PO (17:26)
[2019-10-20 18:40] VITALS: BP 147/90
== END 2019-10-20 18:40 | disposition home or self-care (01) ==
LOC: D.ER 13:34
DX: S22.32XA Fracture of one rib, left side, initial encounter for closed fracture (principal); S43.402A Unspecified sprain of left shoulder joint, initial encounter; W19.XXXA Unspecified fall, initial encounter; Y93.9 Activity, unspecified; Y92.9 Unspecified place or not applicable; E07.9 Disorder of thyroid, unspecified; I10 Essential (primary) hypertension

== ENCOUNTER → 2020-03-13 09:33 | Outpatient (CLI) | payer OTHER ==
[2019-10-20 14:01] VITALS: BMI 28.0
[~2020-03-13 09:33] MED LIST changes: +TYLENOL W/CODEI1 TAB PO; +VOLTAREN75 MG PO
== END | disposition home or self-care (01) ==
LOC: D.CN 09:33 → D.MRI 11:00
PROVIDERS: ATTEND Psychiatry & Neurology Neurology
DX: G40.909 Epilepsy, unspecified, not intractable, without status epilepticus (principal)

== ENCOUNTER 2020-03-24 20:50 | Inpatient (IN) | payer OTHER ==
[~2020-03-24] VITALS: Ht 182.9 cm; Wt 92.3 kg
--- NOTE | ~2020-03-24 | EC ---
PATIENT:KATELYN NUGENT DATE OF SERVICE: 03/25/20 SEX: M MEDICAL RECORD: [id number] DATE OF : [birth year] LOCATION:D.M2 D.213 AGE OF PATIENT: 70 ADMISSION DATE: 03/25/20 REFERRING PHYSICIAN: INTERPRETING PHYSICIAN: RIGO AREVALO MD ECHOCARDIOGRAM REPORT ECHO CHARGES 4 ECHO COMPLETE Date: 03/25/20 CLINICAL DIAGNOSIS: SOB ECHOCARDIOGRAPHIC MEASUREMENTS (adult normal given) AC root (d.<3.7cm) 4.0 cm LV Septum d (<1.2 cm> 1.4 cm Valve Excursion 2.1 cm LV Septum (systole) 1.6 cm Left Atria (s.<4.0cm> 3.0 cm LVPW d(<1.2cm) 1.2 cm RV (d.<2.3cm) 3.1 cm LVPW (sytole) 1.8 cm LV diastole(<5.6CM) 3.6 cm MV E-F(>70mm/sec) cm LV systole 2.2 cm LVOT Diameter 1.8 cm MV exc.(>10mm) cm Est.ejection fraction (50-75%) % DOPPLER: LVIT cm/sec A 64.0 cm/sec E 86.0 cm/sec LA cm/sec RVSP 20.0 mmHg LVOT 115 cm/sec AOP1/2T m/s Asc. Ao 121 cm/sec RVOT 68.0 cm/sec RA cm/sec PA 56.0 cm/sec AV Gradient Peak 5.9 mmHg AV Mean 3.8 mmHg AV Area 2.1 cm MV Gradient Peak 4.0 mmHg MV Mean 1.3 mmHg MV Area cm COMMENTS: Cutter Head Sharpener: Ricardo WALLOE Economic Development Manager: 4 Dr. Arevalo TAPE# PACS Pericardial Effusion N DATE OF SERVICE: 03/25/2020 PROCEDURE: Transesophageal echocardiogram. FINDINGS: Left ventricle is normal function with ejection fraction 50% to 55%. There is concentric left ventricular hypertrophy. Left atrium is normal size and function. ECHOCARDIOGRAM REPORT [id number] KATELYN NUGENT Aortic valve is normal. Mitral valve is normal. Tricuspid valve is normal. Pericardium is normal. Right ventricle is mildly enlarged, but normal function. Right atrium is mildly enlarged with normal function. Pulmonic valve is normal. TRANSINT:[id number] Voice Confirmation ID: [id number] DOCUMENT ID: [id number] RIGO AREVALO MD CC: [id number] DICTATION DATE: 03/25/20 184 LOGGING ASSISTANT: 03/26/20 021 ADM IN [place] [address] [place] [address]
[2020-03-24] MEDS ORDERED: ZONEGRAN100 MG PO (21:01)
[2020-03-24 21:22] LABS: BASOPHILS 0.2 % (0-2); EOSINOPHILS 3.3 % (0-7); HEMATOCRIT 45.9 % (42.0-54.0); HEMOGLOBIN 14.9 g/dL (13.5-17.5); IMMATURE GRANULOCYTES 0.2 % (0-5); LYMPHOCYTES 8.7 % (15-50); MCHC 32.5 g/dL (31.0-37.0); MCV 98.7 fL (80.0-100.0); MEAN PLATELET VOLUME 10.9 fL (7.4-10.4); MONOCYTES 8.9 % (2-11); NEUTROPHILS 78.7 % (40-80); PLATELET COUNT 230 10x3/uL (130-400); RBC 4.65 10x6/uL (4.20-6.10); RDW 13.2 % (11.5-14.5); WBC 9.4 10x3/uL (4.8-10.8)
[2020-03-24 21:23] LABS: CALC OSMOLALITY 272 mosm/kg (275-300); CARBON DIOXIDE 27.1 mmol/L (21.0-32.0); CHLORIDE - SERUM 102 mmol/L (98-107); CREATININE - SERUM 1.6 mg/dL (0.6-1.3); GLUCOSE 133 mg/dL (74-106); POTASSIUM - SERUM 4.4 mmol/L (3.5-5.1); SODIUM 135 mmol/L (136-145); UREA NITROGEN 14 mg/dL (7-18); eGFR NON AFRICAN AMERICAN 46 mL/min (90-120)
[2020-03-24 21:36] LABS: ALBUMIN 3.8 g/dL (3.4-5.0); ALKALINE PHOSPHATASE 114 U/L (30-120); ALT (SGPT) 26 U/L (10-68); BILIRUBIN - TOTAL 0.73 mg/dL (0.2-1.3); PRO BNP 86 pg/mL (0-125); PROTEIN - SERUM 7.7 g/dL (6.4-8.2); TROPONIN-I < 0.017 ng/mL (0.000-0.060)
--- NOTE | 2020-03-24 23:58 | NUR ---
REPORT RECEIVED, PT CARE ASSUMED. AWAITING PT'S ARRIVAL TO ROOM 0890.
[2020-03-25 04:16] VITALS: BP 113/81; BMI 27.6
[2020-03-25 04:30] VITALS: BP 115/67
[2020-03-25 08:22] VITALS: BP 123/70
[2020-03-25 12:17] VITALS: BP 120/73
[2020-03-25 13:56] LABS: APTT 36.9 SECONDS (22.8-39.4); INR 1.03 (0.85-1.17); PROTIME 13.4 SECONDS (11.6-15.0)
[2020-03-25 15:45] VITALS: BP 116/70
[2020-03-25 20:30] VITALS: BP 132/70
[2020-03-26] VITALS (7 sets, daily range): BP systolic 126–148; BP diastolic 68–76
--- NOTE | 2020-03-26 02:28 | NUR ---
INITIAL ROUNS COMPLETED AT 1914 HRS. PT RESTING WITH EYES CLOSED. RESP EVEN AND REGULAR. ASSESSMENT COMPLETED AT [address] PER CM HR 100. ALERT AND ORIENTED TO PERSON, PLACE AND TIME. KRUEGER. IV TO RFA WITH NS AT 75CC/HR. IV PATENT. RIGHT RIB CAR WORKER TO TOUCH. MORPHINE 2MG SIVP GIVEN AT 2144 FOR C/O INTERMITTENT R SIDED CP. PT CURRENTLY RESTING WITH EYES CLOSED. RESP EVEN AND REGULAR. SR UP X2, CALL LIGHT WITHIN REACH.
--- NOTE | 2020-03-26 03:30 | NUR ---
PT RESTING WITH EYES CLOSED. RESP EVEN AND REGULAR. SR UP X1, CALL LIGHT WITHIN REACH.
[2020-03-26 05:28] LABS: BASOPHILS 0.3 % (0-2); EOSINOPHILS 3.6 % (0-7); HEMATOCRIT 39.1 % (42.0-54.0); HEMOGLOBIN 12.6 g/dL (13.5-17.5); IMMATURE GRANULOCYTES 0.3 % (0-5); MCH 31.9 pg (26.0-34.0); MCHC 32.2 g/dL (31.0-37.0); MONOCYTES 14.9 % (2-11); NEUTROPHILS 67.9 % (40-80); PLATELET COUNT 200 10x3/uL (130-400); RBC 3.95 10x6/uL (4.20-6.10); RDW 13.2 % (11.5-14.5)
[2020-03-26 06:02] LABS: ANION GAP 10.9 mmol/L (8-16); BILIRUBIN - TOTAL 0.74 mg/dL (0.2-1.3); CALCIUM 8.1 mg/dL (8.5-10.1); CARBON DIOXIDE 24.2 mmol/L (21.0-32.0); CREATININE - SERUM 1.2 mg/dL (0.6-1.3); MAGNESIUM - SERUM 1.8 mg/dL (1.8-2.4); POTASSIUM - SERUM 4.1 mmol/L (3.5-5.1); PROTEIN - SERUM 6.2 g/dL (6.4-8.2)
[2020-03-26 06:03] LABS: ALBUMIN 2.8 g/dL (3.4-5.0)
--- NOTE | 2020-03-26 06:03 | NUR ---
VSS THROUGHOUT NIGHT. SR PER CM. PT STATED MORPHINE HELPED CONTROL PAIN. NEEDS MET; WILL CONTINUE TO MONITOR.
--- NOTE | 2020-03-26 19:10 | NUR ---
AWAKE AND ALERT WITH NO NEEDS AT THIS TIME BED IS LOW AND LOCKED CALL LIGHT IS WITH PT
[2020-03-27 04:27] VITALS: BP 127/78
[2020-03-27 06:09] LABS: HAPTOGLOBIN 211 mg/dL (32-363)
[2020-03-27 06:23] LABS: ALBUMIN 2.9 g/dL (3.4-5.0); ALKALINE PHOSPHATASE 97 U/L (30-120); ALT (SGPT) 21 U/L (10-68); CALC OSMOLALITY 273 mosm/kg (275-300); CALCIUM 8.5 mg/dL (8.5-10.1); CARBON DIOXIDE 23.5 mmol/L (21.0-32.0); CHLORIDE - SERUM 104 mmol/L (98-107); GLUCOSE 101 mg/dL (74-106); MAGNESIUM - SERUM 1.9 mg/dL (1.8-2.4); PROTEIN - SERUM 6.6 g/dL (6.4-8.2); SODIUM 137 mmol/L (136-145); eGFR NON AFRICAN AMERICAN 78 mL/min (90-120)
[2020-03-27 06:25] LABS: BASOPHILS 0.3 % (0-2); EOSINOPHILS 2.8 % (0-7); HEMATOCRIT 39.4 % (42.0-54.0); HEMOGLOBIN 12.8 g/dL (13.5-17.5); IMMATURE GRANULOCYTES 0.2 % (0-5); LYMPHOCYTES 14.5 % (15-50); MCH 31.8 pg (26.0-34.0); MCHC 32.5 g/dL (31.0-37.0); MEAN PLATELET VOLUME 10.6 fL (7.4-10.4); NEUTROPHILS 71.2 % (40-80); PLATELET COUNT 207 10x3/uL (130-400); RBC 4.02 10x6/uL (4.20-6.10); RDW 12.9 % (11.5-14.5); UREA NITROGEN 13 mg/dL (7-18); WBC 6.1 10x3/uL (4.8-10.8)
[2020-03-27 08:47] VITALS: BP 118/74
[2020-03-27 09:51] LABS: LDH 141 U/L (85-227)
[2020-03-27 11:09] LABS: ACLA - IGG AB <9 GPL U/mL (0-14); ACLA - IGM AB <9 MPL U/mL (0-12)
[2020-03-27 13:11] VITALS: BP 101/65
--- NOTE | 2020-03-27 15:29 | NUR ---
I have reviewed this patient and I concur with the Shift Assessment completed by the Licensed Practical Nurse today this shift.
[2020-03-27 17:10] VITALS: BP 104/58
[2020-03-27 18:12] VITALS: Ht 182.9 cm; Wt 92.3 kg
--- NOTE | 2020-03-27 19:22 | NUR ---
ASSISTED UP TO RESTROOM GAVIN WELL BED LOW AND LOCKED CALL LIGHT WITH PT NO OTHER NEEDS NOTED
[2020-03-27 19:58] VITALS: BP 112/63
[2020-03-27 23:28] VITALS: BP 116/66
[2020-03-28 04:11] VITALS: BP 135/77
[2020-03-28 04:51] LABS: BASOPHILS 0.4 % (0-2); EOSINOPHILS 4.8 % (0-7); HEMOGLOBIN 12.6 g/dL (13.5-17.5); IMMATURE GRANULOCYTES 0.2 % (0-5); LYMPHOCYTES 14.1 % (15-50); MCH 31.7 pg (26.0-34.0); MCHC 32.3 g/dL (31.0-37.0); MEAN PLATELET VOLUME 10.2 fL (7.4-10.4); MONOCYTES 9.7 % (2-11); NEUTROPHILS 70.8 % (40-80); PLATELET COUNT 233 10x3/uL (130-400); RBC 3.98 10x6/uL (4.20-6.10); RDW 12.9 % (11.5-14.5); WBC 5.2 10x3/uL (4.8-10.8)
[2020-03-28 05:23] LABS: ALBUMIN 2.8 g/dL (3.4-5.0); ANION GAP 12.7 mmol/L (8-16); BILIRUBIN - TOTAL 0.81 mg/dL (0.2-1.3); CALCIUM 8.8 mg/dL (8.5-10.1); CARBON DIOXIDE 24.1 mmol/L (21.0-32.0); CREATININE - SERUM 1.1 mg/dL (0.6-1.3); POTASSIUM - SERUM 3.8 mmol/L (3.5-5.1); PROTEIN - SERUM 6.5 g/dL (6.4-8.2)
[2020-03-28 08:12] VITALS: BP 127/89
[2020-03-28 08:12] LABS: BILIRUBIN NEGATIVE (NEGATIVE); GLUCOSE NEGATIVE (NEGATIVE); KETONE NEGATIVE (NEGATIVE); NITRITE NEGATIVE (NEGATIVE)
[2020-03-28 11:40] VITALS: BP 124/71
[2020-03-28] MEDS ORDERED: VITAMIN B-12100 MCG PO (14:30)
[2020-03-28] MEDS ORDERED: FLUTICASONE PRO16 GM NASAL (14:30)
[2020-03-28] MEDS ORDERED: ELIQUIS5 MG PO (14:31)
[2020-03-28 15:11] LABS: CEA 1.2 ng/mL (0.0-4.7)
--- NOTE | 2020-03-28 16:27 | NUR ---
PT WITH OXYGEN DELIVERED FROM [facility]. TELEMETRY REMOVED, IV OUT. DC INSTRUCTIONS REVIEWED. HERE FOR TRANSPORT. TO SURGICAL RN [facility] SCRIPT AND START TONITE.
--- NOTE | 2020-03-28 19:03 | MORECARE ---
CASE MANAGEMENT DISCHARGE SUMMARY PATIENT: KATELYN NUGENT UNIT: [id number] ADM DATE: 03/25/20 AGE: 70 : 50 SEX: M ROOM/BED: D.2136 AUTHOR: KUN KAUFFMAN PHYSICIAN: REFERRING PHYSICIAN: DEAN BAILEY MD DATE OF SERVICE: 03/28/20 Discharge Plan Patient Name: KATELYN NUGENT Facility: [facility]:[place] : 1950 Planned Disposition: Home Anticipated Discharge Date: Discharge Date: 03/28/2020 Expected LOS: 0 Initial Reviewer: [email or web address] Initial Review Date: 03/25/2020 Generated: 03/28/20 8:03 pm DCPIA - Discharge Planning Initial Assessment Updated by [email or web address]: Carlita Loco on 03/28/20 6:59 pm * Is the patient Alert and Oriented? Yes * How many steps to enter\exit or inside your home? 5-6/0 * PCP JONES * [facility] [address] * Preadmission Environment Home with Family * ADLs Independent * Equipment Cane Grab Bars * Community resources currently utilized None * Additional services required to return to the preadmission environment? Yes * Can the patient safely return to the preadmission environment? Yes * Has this patient been hospitalized within the prior 30 days at any hospital? No External Providers External Provider: Taiwo Almeida Contact Date: Service Request Date: Service Type: Resolution: Reviewer: Comments: Patient Name: KATELYN NUGENT Page 19930 at 1903 All edits/amendments must be made on the electronic document DICTATION DATE: 03/28/201902 STATE ASSESSED PROPERTIES DIRECTOR: HAIDER 03/28/201902 RPT#: [id number] DC DATE:03/28/20 STATUS: DIS IN [facility] [address] [place] [address] END OF REPORT
--- NOTE | 2020-03-28 19:11 | MORECARE ---
CASE MANAGEMENT DISCHARGE SUMMARY PATIENT: KATELYN NUGENT UNIT: [id number] ADM DATE: 03/25/20 AGE: 70 : 50 SEX: M ROOM/BED: D.6026 AUTHOR: JAMARIDOC PHYSICIAN: REFERRING PHYSICIAN: DEAN BAILEY MD DATE OF SERVICE: 03/28/20 Discharge Plan Patient Name: KATELYN NUGENT Facility: [facility]:[place] : 1950 Planned Disposition: Home Anticipated Discharge Date: Discharge Date: 03/28/2020 Expected LOS: 0 Initial Reviewer: [email or web address] Initial Review Date: 03/25/2020 Generated: 03/28/20 8:10 pm Comments DCP- Discharge Planning Updated by [email or web address]: Carlita Loco on 03/28/20 6:[address] Patient Name: KATELYN NUGENT Admission Status: ER Accout number: [id number] Admission Date: 03-25-2020 : 1950 Admission Diagnosis:SHORTNESS OF BREATH Attending: DEAN BANUELOS Current LOS: 3 Anticipated DC Date: Planned Disposition: Home Primary Insurance: [employer] Late entry. assessment completed at 1415 Discharge Planning Comments: CM met with patient to complete initial dc planning assessment. CM educated patient on the CM role and verbal consent given by patient to complete assessment. CM verified patient's address, phone number, and emergency contact phone numbers. Patient lives in a tiny home with his . At discharge patient plans to return home and feels this is a safe discharge. CM discussed availability of home health, rehab services, and medical equipment. Patient denies the need for HH or rehab. States the nurse practitioner will come see him from house calls. Pt continues to become dyspneic with exertion. A walk test was performed and oxygen was needed at home. THEO signed for [facility]. CM faxed referral and 02 was brought to patient. DC IMM delivered, explained, signed by the patient, and placed in his chart. Signed form also left with patient. The patient called for transport. CM will continue to follow and will assist as needed with dc plans/needs. Health Information Technician: Carlita Loco MSn,RN,Cm DCPIA - Discharge Planning Initial Assessment Updated by [email or web address]: Carlita Loco on 03/28/20 6:59 pm * Is the patient Alert and Oriented? Yes * How many steps to enter\exit or inside your home? 5-0 * PCP KAREN * Pharmacy [facility] * Preadmission Environment Home with Family * ADLs Independent * Equipment Cane Grab Bars * Community resources currently utilized None * Additional services required to return to the preadmission environment? Yes * Can the patient safely return to the preadmission environment? Yes * Has this patient been hospitalized within the prior 30 days at any hospital? No Coverage Notice Reviewer: [email or web address] Lauren Loco Notice Issued Date-Time: 03/28/2020 14:00 Notice Type: IM Discharge Notice Notice Delivered To: Patient Relationship to Patient: Orthopedic Brace Maker Name: Delivery Method: HAND - Hand Delivered [place] Days: Prior Verbal Notification: Recipient Understood Notice: Yes Recipient Signature: Yes Med Rec Note Co-signed by Attending: Coverage Notice Comment: DC IMM delivered, explained, signed by the patient, and placed in his chart. Signed form also left with patient. Reviewer: [email or web address] Lauren Loco Notice Issued Date-Time: 03/28/2020 14:00 Notice Type: Patient Choice Letter Notice Delivered To: Patient Relationship to Patient: Orthopedic Brace Maker Name: Delivery Method: HAND - Hand Delivered Esperanza Days: Prior Verbal Notification: Recipient Understood Notice: Yes Recipient Signature: Yes Med Rec Note Co-signed by Attending: Coverage Notice Comment: theo signed for [facility]. declination signed for [facility] Last DP export: 03/28/20 6:03 pm Patient Name: KATELYN NUGENT Page [phone] at 1911 All edits/amendments must be made on the electronic document DICTATION DATE: 03/28/201909 FLOOR RUNNER: HAIDER 03/28/201909 RPT#: [id number] DC DATE:03/28/20 STATUS: DIS IN [facility] [address] [place] [address] END OF REPORT
[2020-03-29 03:07] LABS: PROTEIN S - FREE 75 % (57-157); PROTEIN S - TOTAL 90 % (60-150)
[2020-03-29 04:08] LABS: PROTEIN S - FREE 80 % (57-157); PROTEIN S - FUNCTIONAL 67 % (63-140); PROTEIN S - TOTAL 94 % (60-150)
[2020-03-29 14:09] LABS: FACTOR II DNA ANALYSIS Negative (())
[2020-03-29 14:09] LABS: ALPHA FETOPROTEIN -(TUMOR MRK) 3.3 ng/mL (0.0-8.3)
== END 2020-03-28 16:28 | disposition home or self-care (01) | DRG 176 ==
LOC: D.ER 20:50 → D.M2 23:31 → OBSVTIME 23:31 → D.M2 23:31
PROVIDERS: Emergency Medicine; Family Medicine; Internal Medicine Hematology & Oncology; Internal Medicine Pulmonary Disease; ADMIT Family Medicine; ATTEND Family Medicine
DX: I26.99 Other pulmonary embolism without acute cor pulmonale (principal); E87.1 Hypo-osmolality and hyponatremia; N17.9 Acute kidney failure, unspecified; I25.10 Atherosclerotic heart disease of native coronary artery without angina pectoris; I10 Essential (primary) hypertension; E03.9 Hypothyroidism, unspecified; G40.909 Epilepsy, unspecified, not intractable, without status epilepticus; J44.9 Chronic obstructive pulmonary disease, unspecified; Z87.891 Personal history of nicotine dependence

== ENCOUNTER → 2020-04-18 09:57 | Outpatient (CLI) | payer OTHER ==
[2020-03-27 18:12] VITALS: BMI 27.6
[~2020-04-18 09:57] MED LIST changes: +ELIQUIS5 MG PO; +FLUTICASONE PRO16 GM NASAL; +VITAMIN B-12100 MCG PO; +ZONEGRAN100 MG PO
== END | disposition home or self-care (01) ==
LOC: D.LAB 09:57
PROVIDERS: ATTEND Internal Medicine Pulmonary Disease
DX: Z11.59 Encounter for screening for other viral diseases (principal)

== ENCOUNTER → 2020-04-19 09:06 | Outpatient (CLI) | payer OTHER ==
[2020-03-27 18:12] VITALS: BMI 27.6
== END | disposition home or self-care (01) ==
LOC: D.RT 09:06
PROVIDERS: ATTEND Internal Medicine Pulmonary Disease
DX: I26.99 Other pulmonary embolism without acute cor pulmonale (principal)

== ENCOUNTER → 2020-06-01 12:39 | Outpatient (CLI) | payer OTHER ==
[2020-03-27 18:12] VITALS: BMI 27.6
[2020-06-01 14:09] LABS: BASOPHILS 0.5 % (0-2); EOSINOPHILS 6.4 % (0-7); HEMATOCRIT 44.3 % (42.0-54.0); HEMOGLOBIN 14.6 g/dL (13.5-17.5); IMMATURE GRANULOCYTES 0.2 % (0-5); LYMPHOCYTES 19.9 % (15-50); MCH 31.9 pg (26.0-34.0); MCV 96.7 fL (80.0-100.0); MEAN PLATELET VOLUME 10.4 fL (7.4-10.4); MONOCYTES 9.7 % (2-11); NEUTROPHILS 63.3 % (40-80); PLATELET COUNT 225 10x3/uL (130-400); RBC 4.58 10x6/uL (4.20-6.10); RDW 12.9 % (11.5-14.5); WBC 5.6 10x3/uL (4.8-10.8)
[2020-06-01 14:28] LABS: ANION GAP 10.4 mmol/L (8-16); BILIRUBIN - TOTAL 0.36 mg/dL (0.2-1.3); CALCIUM 8.9 mg/dL (8.5-10.1); CARBON DIOXIDE 26.9 mmol/L (21.0-32.0); CREATININE - SERUM 1.2 mg/dL (0.6-1.3); PHENOBARBITAL 13.5 ug/mL (15.0-40.0); POTASSIUM - SERUM 4.3 mmol/L (3.5-5.1); PROTEIN - SERUM 7.8 g/dL (6.4-8.2)
[2020-06-05 13:11] LABS: PRIMIDONE 8.9 ug/mL (5.0-12.0)
== END | disposition home or self-care (01) ==
LOC: D.LAB 12:39
PROVIDERS: ATTEND Psychiatry & Neurology Neurology
DX: R56.9 Unspecified convulsions (principal)